=== PATIENT | female | born 1950 | race Caucasian/White ===

== ENCOUNTER 2019-12-17 12:46 | Outpatient (CLI) | payer MEDICARE, SELFPAY ==
--- NOTE | ~2019-12-17 | XR_ITS ---
EXAMINATION: XR toe 4th RT min 2V EXAM DATE: 12/17/2019 13:15 INDICATION: Initial encounter following injury, with pain of the right 4th toe. TECHNIQUE: Right 4th toe frontal, lateral and oblique projections obtained and reviewed. There is no prior study for comparison. FINDINGS: There is an oblique closed posttraumatic fracture through the right 4th proximal phalanx w ithout appreciable displacement or angulation. This is best seen on one of the oblique projections. There is overlying soft tissue swelling. No other suspicious findings. There are 5th metatarsal base repair anchors. IMPRESSION: Acute left 4th proximal phalangeal fracture. Reviewed, dictated and finalized at location B.
== END 2019-12-17 12:47 | disposition home or self-care (01) ==
PROVIDERS: PCP Family Medicine; Visit Provider Family Medicine
DX: S92.511A Displaced fracture of proximal phalanx of right lesser toe(s), initial encounter for closed fracture (principal); X58.XXXA Exposure to other specified factors, initial encounter
CPT/HCPCS: 73660